=== PATIENT | female | born 1950 | race Caucasian/White ===

== ENCOUNTER → 2023-09-08 14:06 | Outpatient (BNVA) | payer OTHER, SELFPAY | PROVIDERS: Visit Provider Psychiatry & Neurology Neurology ==

== ENCOUNTER 2024-09-11 13:09 | Outpatient (AMB) | payer OTHER, SELFPAY ==
--- NOTE | 2024-09-11 13:10 | A.OFFVIS_ITS ---
Vital Signs 09/11/24 13:13 Height 5 ft 5 in Weight 129 lb 8 oz BMI 21.5 BP 122/72 Blood Pressure Location Rt brachial Position Sitting Pulse 79 Pulse Source Pulse Oximeter Pulse Oximetry (%) 98 Oxygen Delivery Method Room Air Intake Visit Reasons: 1 year F/U Intake Note: Patient following up for hand X-ray done 09/08/23- called [facility] medical records for PT note I couldnt do verbal request. 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 Her symptoms began in her 40s and was diagnosed at [facility] when she presented with weakness about 25 years ago. She has genetic testing, EMG and biopsy to confirm. No known family history she is weaker and her daily activities are harder.. Her gait is worse , has trouble with climbing steps . she uses a cane and uses a walker in the house.she has frequent falls. No change in speech swallowing, memory etc.SHe is independent in all ADLS. she needs help with house cleaning. she sleeps good. she loses her balance easily [facility] Medical History Wrist pain, right Fascioscapulohumeral muscular dystrophy Lichen sclerosus HTN (hypertension) Fibroids Diverticulosis Cholelithiasis Back pain Arthritis Fibromyalgia Depression Surgical History H/O hemorrhoidectomy H/O: hysterectomy Family History Father Cancer Paternal Grandfather Suicide Son Depression Social History Alcohol intake: never Patient Tobacco Use Status: Never used Tobacco Physical Exam Vital Signs: Last Vital Signs Pulse 79 09/11/24 13:13 BP 122/72 09/11/24 13:13 Pulse Ox 98 09/11/24 13:13 Oxygen Delivery Method Room Air 09/11/24 13:13 BMI result Body Mass Index 21.5 Const General: cooperative, healthy appearing, comfortable and no acute distress Nutritional Appearance: average body habitus Orientation/consciousness: patient oriented x3 Neuro Other: Proximal muscle weakness UP and LE Weakness of facial and scapular muscles Gait- off balance wide based General: patient oriented x3 Cranial nerves: Yes CN's II-XII intact bilaterally, Yes Nystagmus not present and Yes Normal facial strength present Cognition (Neuro): normal cognition Gait exam (Neuro): Wide-based gait present Deep tendon reflexes (DTR's): Rt Biceps (C5, C6): 1+, Left biceps reflex intensity grade: 1+, Right patellar reflex intensity grade: 1+ and Left patellar reflex intensity grade: 1+ Assessment & Plan Assessment & Plan (1) Fascioscapulohumeral muscular dystrophy: Code(s): G71.02 - Facioscapulohumeral muscular dystrophy Category: Medical (2) Back pain: Code(s): M54.9 - Dorsalgia, unspecified Category: Medical Plan Continue using walker to prevent falls Refer to [facility] for further evaluation suggested starting B complex creatinine magnesium 400mg qhs for neck tightness Orders: Referrals Neurology Referral G71.02 - Facioscapulohumeral muscular dystrophy Coding Level of Care Code Est Pt Level 4 (17853) Diagnoses Fascioscapulohumeral muscular dystrophy G71.02 Back pain M54.9
[2024-09-11 13:13] VITALS: BP 122/72; PULSE 79; O2SAT 98; BMI 21.5
--- OUTSIDE RECORDS SUMMARY | 2024-09-11 15:05 | XMS_ITS | Data Portability ---
Author Organization [facility] Address [address] [place] [id number] Care Team Providers Care Oil Recovery Unit Operator Name Role Phone ALEX CHILDS Primary Care Provider [phone] [facility] CARE TEAM OTHER Assessment Encounter Date Assessment Date Assessment LastModified by Organization Details LastModified Time 11/08/2023 11/08/2023 73 yo F with 3 days of intractable migraine (status migrainous), along with associated dizziness and unrelated lumbosacral back pain. Headache was gradual in onset, bilateral occipital area, has waxed and waned in severity, is worsened by noise, not relieved with tylenol. Pt does have a hx migraines, but not typically this long lasting. No F/C, CP, SOB, vision changes. VS wnl. EKG NSR, no ST-TW changes. BMP wnl. Per medic, non-focal neuro exam. Pt received IVF, reglan and toradol with improvement in pain. Discussed FUP with PCP. Has red flag s/sxs and precautions for call back vs ED. [email or web address] Not available 11/22/2023 19:37:53 Plan of Treatment Reminders Order Date Submit Date Provider Last Modified By Organization Details Last Modified Time Details Appointments None recorded. Lab None recorded. Referral None recorded. Procedures None recorded. Surgeries None recorded. Imaging None recorded. Medication Orders sodium chloride 0.9 % intravenous solution 2023 024 [email or web address] Not available 4 15:32:43 metoclopram roc 5 mg/mL injection solution 2023 024 [email or web address] Not available 4 15:32:43 ketorolac 30 mg/mL injection solution 2023 024 [email or web address] Not available 4 15:32:43 Patient TargetsNo targets recorded. Patient InstructionsNo instructions recorded. Reason for Referral None Reported. Medical Equipment None Reported. Medications Name Sig Start Date Stop Date Status Note LastModified by Organization Details LastModified Time atorvastatin 40 mg tablet TAKE ONE TABLET BY MOUTH AT NIGHT TIME active Not Available Not Available N ot Available azithromycin 250 mg tablet TAKE 2 TABLETS BY MOUTH TODAY, THEN TAKE 1 TABLET DAILY FOR 4 DAYS DIRECTED WITH FOOD active Not Available Not Available No t Available sertraline 100 mg tablet TAKE 1 & 1/2 TABLETS BY MOUTH EVERY DAY active Not Available Not Available No t Available nystatin-tria mcinolone 100,000 unit/gram-0.1 % topical ointment APPLY TOPICALLY ONCE A WEEK. TO THE VULVA, 1/4G active Not Available Not Available No t Available magnesium oxide 400 mg (241.3 mg magnesium) tablet TAKE 1 TABLET BY MOUTH EVERY DAY AT BEDTIME active Not Available Not Available N ot Available gabapentin 300 mg capsule TAKE 2 CAPSULES BY MOUTH EVERY MORNING, 2 IN THE AFTERNOON AND 3 AT NIGHT active Not Available Not Available No t Available omeprazole 20 mg capsule,delay ed release TAKE 1 CAPSULE BY MOUTH EVERY DAY active Not Available Not Available No t Available aspirin 81 mg chewable tablet TAKE 1 TABLET BY MOUTH EVERY DAY active Not Available Not Available No t Available metoprolol succinate ER 25 mg tablet,extend ed release 24 hr TAKE 1 TABLET BY MOUTH EVERY DAY active Not Available Not Available No t Available estradiol 0.01% (0.1 mg/gram) vaginal cream PLACE 1/2 GRAM TO THE VAGINAL OPENING WEEKLY active Not Available Not Available No t Available doxycycline hyclate 100 mg tablet TAKE 1 TABLET BY MOUTH TWICE A DAY FOR 10 DAYS active Not Available Not Available No t Available naproxen 500 mg tablet TAKE 1 TABLET BY MOUTH EVERY 12 HOURS NEEDED FOR PAIN MAX 2 TABLETS /DAY active Not Available Not Available No t Available amoxicillin 875 mg-potassium clavulanate 125 mg tablet TAKE 1 TABLET BY MOUTH EVERY 12 HOURS UNTIL FINISHED active Not Available Not Available No t Available oxycodone 5 mg tablet TAKE 1 TABLET (5 MG TOTAL) BY MOUTH EVERY 4 HOURS NEEDED active Not Available Not Available No t Available azithromycin 500 mg tablet TAKE 1 TABLET BY MOUTH EVERY DAY active Not Available Not Available No t Available duloxetine 60 mg capsule,delay ed release TAKE 1 CAPSULE BY MOUTH EVERY DAY active Not Available Not Available No t Available Eliquis 2.5 mg tablet TAKE 1 TABLET BY MOUTH TWICE A DAY active Not Available Not Available No t Available Flonase Sensimist 27.5 mcg/actuation nasal spray,suspens ion SPRAY 2 SPRAYS BY NASAL ROUTE DAILY active Not Available Not Available No t Available Paxlovid 300 mg (150 mg x 2)-100 mg tablets in a dose pack TAKE 3 TABLETS TWICE A DAY FOR 5 DAYS active Not Available Not Available No t Available Vitals Date Recorded Body temperature Body height Respiratory rate Body weight Oxygen saturation Oxygen saturation in Arterial blood by Pulse oximetry Heart rate Heart rate Heart rate Systolic blood pressure Diastolic blood pressure Systolic blood pressure Diastolic blood pressure Systolic blood pressure Diastolic blood pressure Provider Name and Address Organization Details Last Updated DateTime 4 97.3 [degF] 165.1 cm 16 /min [id number]. 136 g 97 % 97 % 112 /min 122 /min 84 /min 130 mm[Hg] 86 mm[Hg] 133 mm[Hg] 94 mm[Hg] 173 mm[Hg] 86 mm[Hg] Not Available [facility] - production 4 16:29:11 Social History None recorded. Functional Status None recorded. Mental Status None recorded. Family History Nothing Reported. Medical History No medical history recorded. Gynecological HistoryNo gynecological history recorded. Obstetrics History GPAL:G 0 P 0 0 0 0 Past Encounters Encounter ID Performer Location Encounter Start Date Encounter Closed Date Diagnosis/Indication Diagnosis SNOMED-CT Code Diagnosis ICD10 Code Diagnosis Note [id number] JOSE SHERIDAN MD Main - [address] [id number] 11/08/2023 15:30:18 06/20/2024 00:11:25 Migraine 17663049 G43.909 Health Concerns Section Related Observation LastModified by Organization Detai ls LastModified Time None Recorded Concern Status LastModified by Organization Details LastModified Time None Recorded Advance Directives Directive None Recorded Payers Encounter Date Sequence Insurance Name Policy Number Policy Espinosa Covered Member ID Espinosa Member ID Guarantor Name 11/08/2023 1 [facility] - MEDICARE PREFERRED (MEDICARE REPLACEMENT HMO) HOLLI Andrade [id number] Elva Andrade Notes Date Note Type Note Provider Name and Address Organization Details Recorded Time 11/08/2023 text/html HPI: Members managed care specialist calling in to place a referral on members behalf. Member with PMHx of afib, HTN, arthritis, fibromyalgia, GERD, anxiety and depression. Member c/o dizziness, headache and backache. Member denies vision changes, no sob or chest pain, no n/v/d, no fever/chills. Member stable but does not feel safe to drive to her PCP. Member agreeable to an [facility] visit. .................. .................. .................. .................. .................. .................. .................. ............... [facility] Nurse Triage Notes (Imelda Maier): Comments: [facility] RN did not require any additional information to process this visit--- call to member for copay, she prefers to be billed and not make PMT over the phone- Implementation Specialist Payroll POC Test Results from Sahil Gonzales [facility] (17:09:17) Na: 141 mEq/L K: 4.5 mEq/L Cl: 101 mEq/L iCa: 1.21 mmol/L TCO2: 34 mmol/L Glu: 105 mg/dL BUN: 13 mg/dL Crea: 0.5 mg/dL Hct: 45 % Hb: 15.3 g/dL A .................. .................. .................. .................. .................. .................. .................. ............... Implementation Specialist Payroll Note From Sahil Gonzales: [facility] visit for elderly female pt. Pt presents conscious and alert ambulating and answering the door. Pt noted to have tremor in face and extremities, ambulating unassisted but struggling a little bit. Pt signed consent and stated she woke up 3 days ago with severe headache, dizziness, and backache. Pt has tried treating with tylenol which hasn't improved symptoms. V/S taken with some tachycardia noted. Pt afebrile. Pt rates headache as 10/10 starting first near the occiput, now localized at the scalp line above the eyebrows. Backache noted to be lower lumbar on the right side. Area palpated with muscle feeling inflamed and was tender on palpation. Pt also reporting some dizziness while ambulating. Stroke assessment completed with only finding some weakness with dorsiflexion on right leg. also present who stated that the tremor and difficulty walking are largely unchanged from baseline. EKG completed and uploaded for [facility] review. IV placed and blood drawn and results of BMP uploaded to [facility]. Labs unremarkable. Consulted with [facility] who ordered 1 liter IV LR, 15 mg IV toradol, and 5 mg of IV reglan, administered on scene. Pt reports slight improvement of headache afterwards. Reviewed red flags for ED. Patient education provided. .................. .................. .................. .................. .................. .................. .................. ............... Disposition: Fulfilled JOSE SHERIDAN MD [address], [place], [id number], [facility] 11/22/2023 19:38:18 OBGyn Episode No OBEpisode recorded.
== END 2024-09-11 13:59 | disposition home or self-care (01) ==
PROVIDERS: PCP Internal Medicine; Visit Provider Psychiatry & Neurology Neurology
DX: G71.02 Facioscapulohumeral muscular dystrophy (principal); M54.9 Dorsalgia, unspecified
CPT/HCPCS: 99214